=== PATIENT | female | born 1945 | race Caucasian/White ===

== ENCOUNTER 2018-03-05 13:03 | Outpatient (CLI) | payer MEDICARE, OTHER ==
[2018-03-05 13:00] VITALS: BP 118/80
== END 2018-03-05 13:35 | disposition home or self-care (01) ==
LOC: ORTHO 13:03
PROVIDERS: ATTEND Nurse Practitioner Family
DX: M25.531 Pain in right wrist (principal); F41.9 Anxiety disorder, unspecified; Z88.8 Allergy status to other drugs, medicaments and biological substances
CPT/HCPCS: 73110; 99213

== ENCOUNTER 2018-04-02 13:01 | Outpatient (CLI) | payer MEDICARE, OTHER ==
[2018-04-02 13:05] VITALS: BP 125/79
== END 2018-04-02 13:36 | disposition home or self-care (01) ==
LOC: ORTHO 13:01
PROVIDERS: ATTEND Nurse Practitioner Family
DX: S52.501G Unspecified fracture of the lower end of right radius, subsequent encounter for closed fracture with delayed healing (principal); G20 Parkinson's disease; F41.9 Anxiety disorder, unspecified; X58.XXXD Exposure to other specified factors, subsequent encounter
CPT/HCPCS: 73110; 99213

== ENCOUNTER 2018-04-23 12:47 | Outpatient (CLI) | payer MEDICARE, OTHER ==
[2018-04-23 12:52] VITALS: BP 129/79
== END 2018-04-23 13:40 | disposition home or self-care (01) ==
LOC: ORTHO 12:47
PROVIDERS: ATTEND Nurse Practitioner Family
DX: S52.501D Unspecified fracture of the lower end of right radius, subsequent encounter for closed fracture with routine healing (principal); G20 Parkinson's disease; F41.9 Anxiety disorder, unspecified; Z88.1 Allergy status to other antibiotic agents; Z88.8 Allergy status to other drugs, medicaments and biological substances; W01.0XXD Fall on same level from slipping, tripping and stumbling without subsequent striking against object, subsequent encounter
CPT/HCPCS: 73110; 99213

== ENCOUNTER 2018-06-24 09:23 | Outpatient (CLI) | payer MEDICARE, OTHER ==
[2018-06-24 09:21] VITALS: BP 114/77
== END 2018-06-24 09:47 | disposition home or self-care (01) ==
LOC: ORTHO 09:23
PROVIDERS: ATTEND Nurse Practitioner Family
DX: S52.501D Unspecified fracture of the lower end of right radius, subsequent encounter for closed fracture with routine healing (principal); G20 Parkinson's disease; F41.9 Anxiety disorder, unspecified; Z88.1 Allergy status to other antibiotic agents; Z88.8 Allergy status to other drugs, medicaments and biological substances; W01.0XXD Fall on same level from slipping, tripping and stumbling without subsequent striking against object, subsequent encounter
CPT/HCPCS: 73110; 99213

== ENCOUNTER 2018-09-20 06:41 | Inpatient (IN) | payer MEDICARE, OTHER | END 2018-09-23 15:05 | LOC: ER 06:41 → ED HOLD 15:44 → ORTHO 4S 16:50 | PROC: 0PSH04Z Reposition Right Radius with Internal Fixation Device, Open Approach (ICD-10-PCS; principal; 2018-09-22 13:12) | PROC: 2W3FX1Z Immobilization of Left Hand using Splint (ICD-10-PCS; 2018-09-22 13:12) | DX: S52.531A Colles' fracture of right radius, initial encounter for closed fracture (principal); S62.337A Displaced fracture of neck of fifth metacarpal bone, left hand, initial encounter for closed fracture; G20 Parkinson's disease ==

== ENCOUNTER 2022-06-03 02:42 | Emergency (ER) | payer MEDICARE, OTHER ==
[~2022-06-03] VITALS: Ht 162.6 cm; Wt 68.2 kg
[~2022-06-03 02:42] MED LIST: BUPR150T8 PO; CARB-313 PO; NO HOME MEDS
[2022-06-03 02:58] VITALS: BP 124/68
== END 2022-06-03 05:46 | disposition left against medical advice (07) ==
LOC: ER 02:42
DX: R25.1 Tremor, unspecified (principal); Z53.21 Procedure and treatment not carried out due to patient leaving prior to being seen by health care provider

== ENCOUNTER 2023-11-14 21:52 | Emergency (ER) | payer MEDICARE, OTHER ==
[~2023-11-14] VITALS: Ht 162.6 cm; Wt 65.0 kg
[2023-11-15 00:42] VITALS: BP 124/66; PULSE 84; RESP 16; TEMP 98.1; O2SAT 99
== END 2023-11-15 00:43 | disposition home or self-care (01) ==
LOC: ER 21:53
DX: F41.9 Anxiety disorder, unspecified (principal); Z88.1 Allergy status to other antibiotic agents; Z88.8 Allergy status to other drugs, medicaments and biological substances; Z79.899 Other long term (current) drug therapy
CPT/HCPCS: 93005; 99283

== ENCOUNTER 2024-03-31 07:44 | Emergency (ER) | payer MEDICARE, OTHER ==
[~2024-03-31] VITALS: Ht 162.6 cm; Wt 75.0 kg
[2024-03-31 08:28] LABS: BASOPHILS % (AUTO) 0.6 % (0-1); EOSINOPHILS # (AUTO) 0.1 X10'3 (0-0.9); EOSINOPHILS % (AUTO) 1.8 % (0-6); HEMATOCRIT 35.9 % (35.0-45.0); HEMOGLOBIN 11.9 g/dl (12.0-16.0); LYMPHOCYTES # (AUTO) 0.9 X10'3 (1.1-4.8); LYMPHOCYTES % (AUTO) 13.7 % (21-51); MEAN CORPUSCULAR HEMOGLOBIN 32.5 PG (27.0-31.0); MEAN CORPUSCULAR HGB CONC 33.3 g/dL (33.0-36.5); MEAN CORPUSCULAR VOLUME 97.9 FL (78-98); MEAN PLATELET VOLUME 7.5 FL (7.4-10.4); MONOCYTES # (AUTO) 0.5 X10'3 (0-0.9); MONOCYTES % (AUTO) 7.9 % (2-12); PLATELET COUNT 303 X10'3 (140-440); RED BLOOD COUNT 3.67 X10'6 (4.20-5.60); RED CELL DISTRIBUTION WIDTH 14.4 % (11.5-14.5); WHITE BLOOD COUNT 6.6 X10'3 (4.5-11.0)
[2024-03-31 08:46] LABS: ALANINE AMINOTRANSFERASE 12 U/L (12-78); ALBUMIN 3.3 G/DL (3.4-5.0); ALBUMIN/GLOBULIN RATIO 1.2 (1.1-1.5); ALKALINE PHOSPHATASE 95 IU/L (46-116); ANION GAP 4 (8-16); ASPARTATE AMINO TRANSFERASE 12 U/L (10-37); BILIRUBIN,TOTAL 0.5 MG/DL (0.1-1.0); BLOOD UREA NITROGEN 21 MG/DL (7-18); CALCIUM 9.1 MG/DL (8.5-10.1); CHLORIDE 104 MMOL/L (99-107); CREATININE 0.75 MG/DL (0.40-0.90); GLUCOSE 105 MG/DL (70-104); POTASSIUM 4.1 MMOL/L (3.5-5.1); SODIUM 138 MMOL/L (135-145); TOTAL CARBON DIOXIDE 30.5 MMOL/L (24-32); TOTAL PROTEIN 6.1 G/DL (6.4-8.2); eCRCL 54 ML/MIN; eGFR 75 ML/MIN
[2024-03-31] MEDS: normal saline 1000ML IV soln IVB ONE (10:17)
[2024-03-31 11:52] VITALS: BP 138/85; PULSE 71; RESP 16; TEMP 98.2; O2SAT 98
== END 2024-03-31 11:55 | disposition home or self-care (01) ==
LOC: ER 07:45
DX: R42 Dizziness and giddiness (principal); F41.9 Anxiety disorder, unspecified; Z88.1 Allergy status to other antibiotic agents; Z79.899 Other long term (current) drug therapy; Z98.890 Other specified postprocedural states
CPT/HCPCS: 36415; 71045; 80053; 83605; 84484; 85025; 93005; 93971; 96360; 99285; J7030

== ENCOUNTER 2024-04-11 11:31 | Emergency (ER) | payer MEDICARE, OTHER ==
[~2024-04-11] VITALS: Ht 162.6 cm; Wt 63.2 kg
[2024-04-11 12:59] VITALS: BP 118/65; PULSE 73; RESP 16; TEMP 97.8; O2SAT 95
== END 2024-04-11 13:01 | disposition home or self-care (01) ==
LOC: ER 11:32
DX: S70.12XA Contusion of left thigh, initial encounter (principal); M25.462 Effusion, left knee; G20.A1 Parkinson's disease without dyskinesia, without mention of fluctuations; F41.9 Anxiety disorder, unspecified; Z88.1 Allergy status to other antibiotic agents; Z79.899 Other long term (current) drug therapy; Z98.890 Other specified postprocedural states; X58.XXXA Exposure to other specified factors, initial encounter; Y93.89 Activity, other specified; Y92.89 Other specified places as the place of occurrence of the external cause; Y99.8 Other external cause status
CPT/HCPCS: 73560; 99284

== ENCOUNTER 2025-06-05 12:46 | Emergency (ER) | payer MEDICARE, OTHER ==
[~2025-06-05] VITALS: Ht 162.6 cm; Wt 63.1 kg
[~2025-06-05 12:46] MED LIST changes: +ACET-890 PO; +AMA100C PO; -BUPR150T8 PO; -CARB-313 PO; +CARB1CAP5 PO; +CARB1TAB41 PO; +DICL100G59 TOP; +FLUV25TA9 PO; +HYDR-3717 PO; +LORA-269 PO; +MIDO2.5T PO; +MIRT-142 PO; +MULT-18 PO; -NO HOME MEDS; +PRAZ1CAP5 PO
[2025-06-05 12:52] VITALS: TEMP 97
[2025-06-05 14:37] LABS: MEAN PLATELET VOLUME 7.7 FL (7.4-10.4); RED CELL DISTRIBUTION WIDTH 13.8 % (11.5-14.5)
[2025-06-05 14:44] LABS: CREATININE 0.83 MG/DL (0.40-0.90); TOTAL CARBON DIOXIDE 27.6 MMOL/L (24-32); eCRCL 47 ML/MIN; eGFR 66 ML/MIN
--- NOTE | 2025-06-05 14:55 | Physician Documentation ---
History of Present Illness General Chief Complaint: Weakness Stated Complaint: WEAKNESS Time Seen by MD: 14:55 Primary Medical Doctor: DR. VARGAS History of Present Illness Initial Comments 80-year-old female with a history of parkinsonism who was recently admitted to the hospital for weakness presents for shakiness that she had this afternoon. Patient was discharged yesterday. The patient states she felt shaky and was concerned that her blood pressure might be low. She states she did not have a blood pressure for blood pressure machine at home and came in to get checked out. The patient states that the shakiness has improved. The patient denies any fevers chills nausea vomiting or diarrhea. The patient denies any chest pain or shortness of breath. Medication Reconciliation Allergies: Coded Allergies: amoxicillin (Unverified Adverse Reaction, Unknown, 06/05/25) clavulanic acid (Unverified Adverse Reaction, Unknown, 06/05/25) nitrofurantoin (Unverified Adverse Reaction, Unknown, 06/05/25) Scheduled Amantadine Hcl* (Symmetrel*), 1 TAB PO DAILY, (Reported) Carbidopa/Levodopa (Rytary ER 48.75 mg-195 mg Cap), 2 CAP PO Q5H, (Reported) Carbidopa/Levodopa (Rytary ER 48.75 mg-195 mg Cap), 2 CAP PO Q4H, (Reported) Carbidopa/Levodopa (Carbidopa-Levo ER 25-100 Tab), 1 TAB PO TID, (Reported) Diclofenac Sodium (Diclofenac Sodium), 1 APPLIC TOP Q6H, (Reported) Fluvoxamine Maleate (Fluvoxamine Maleate), 1 TAB PO DAILY, (Reported) Hydroxyzine Hcl* (Atarax*), 1 TAB PO Q12H, (Reported) Midodrine Hcl* (Proamatine*), 2 TAB PO BID, (Reported) Mirtazapine (Remeron), 1 TAB PO HS, (Reported) Multivitamin with Folic Acid (Tab-A-Hedy Tablet), 1 TAB PO DAILY, (Reported) Prazosin Hcl (Prazosin Hcl), 1 CAP PO HS, (Reported) Scheduled PRN Acetaminophen (Tylenol), 1-2 TAB PO QID PRN PRN for pain or fever, (Reported) Lorazepam (Ativan), 1 TAB PO DAILY PRN for anxiety, (Reported) Discontinued Medications Carbidopa/Levodopa (Carbidopa-Levo 25-100 Mg Odt), 1 TAB PO TID, (Reported) Discontinued Reason: patient no longer taking Past Medical History Past Medical History: Parkinson's Disease, Anxiety Past Surgical History: orthopedic surgeries Smoking: Non-Smoker Alcohol Use: None Drug Use: none Lives with: Alone Lives In: Home Occupation: employed Review of Systems All Other Systems at this time: Reviewed and Negative Physical Exam Physical Exam Vital Signs: Temperature: 97.0, Source: Temporal, Heart Rate: 90, Respiratory Rate: 18, BP: 122/68, Pulse Oximetry: 95, Weight: 63.100 Oxygen Flow Rate: 0 Physical Exam VITALS: Reviewed and as above. GENERAL: Alert, no apparent distress. HEENT: Normocephalic, atraumatic, PERRL, EOMI, dry mucosa, no erythema RESPIRATORY: Lungs clear, normal breath sounds, no respiratory distress. CHEST: No accessory muscle use, no retractions CV: Regular rate, rhythm, no edema, no murmur, No: JVD GI: Soft, non-tender, bowels sounds present, no rebound, guarding, or rigidity BACK: No CVA tenderness, or swelling MUSCULOSKELETAL: No deformities, no edema SKIN: Warm and dry, no rash NEURO: Oriented x4, No motor or sensory deficit PSYCH: Normal mood and affect, no agitation Progress Results/Orders Results/Orders Vital Signs 06/05/25 06/05/25 06/05/25 12:52 16:04 16:06 Temp 97.0 Pulse 90 71 Resp 18 16 B/P (MAP) 122/68 169/87 Pulse Ox 95 96 O2 Flow Rate 0 Laboratory Tests Test 06/05/25 14:23 White Blood Count 7.4 Red Blood Count 4.42 Hemoglobin 14.0 Hematocrit 41.0 Mean Corpuscular Volume 92.8 Mean Corpuscular Hemoglobin 31.6 H Mean Corpuscular Hemoglobin Concent 34.0 Red Cell Distribution Width 13.8 Platelet Count 278 Mean Platelet Volume 7.7 Neutrophils (%) (Auto) 69.4 Lymphocytes (%) (Auto) 18.1 L Monocytes (%) (Auto) 8.2 Eosinophils (%) (Auto) 3.5 Basophils (%) (Auto) 0.8 Neutrophils # (Auto) 5.1 Lymphocytes # (Auto) 1.3 Monocytes # (Auto) 0.6 Eosinophils # (Auto) 0.3 Basophils # (Auto) 0.1 CBC Comment Sodium Level 140 Potassium Level 4.5 Chloride Level 106 Carbon Dioxide Level 27.6 Anion Gap 6 L Blood Urea Nitrogen 22 H Creatinine 0.83 Estimated GFR/1.73 m2 66 BUN/Creatinine Ratio 26.5 H Glucose Level 91 Calcium Level 9.1 Albumin 3.6 Chemistry Comments Medical Decision Making Findings The patient was recently discharged she became shaky this morning she does have a history of parkinsonism and she felt that her blood pressure might be low. The patient did not have a blood pressure cuff and came to the emergency room for evaluation. The patient is feeling better. Clinically she is well- appearing in no distress her blood pressure is fine. Her prior hospitalizations has been reviewed. Her symptoms have improved. The patient's pulse oximetry was interpreted as normal and adequate the patient will be discharged. Departure Time of Disposition: 15:18 Disposition: 01 HOME / SELF CARE / HOMELESS Impression: Primary Impression: Weakness Discharge Instructions: Weakness, [id number] Additional Instructions: Follow up with your healthcare provider as soon as possible. Return for any worsening of your symptoms. Referrals: NO PRIMARY CARE PROVIDER (PCP) Signature Scribe Signature: no scribe Attestation: The note accurately reflects work and decisions made by me.Carlos Cherry MD 06/08/25 09:34 CARLOS CHERRY MD Jun 05, 2025 14:55
[2025-06-05 16:06] VITALS: BP 169/87; PULSE 71; RESP 16; O2SAT 96
== END 2025-06-05 16:07 | disposition home or self-care (01) ==
LOC: ER 12:46
DX: R53.1 Weakness (principal); F41.9 Anxiety disorder, unspecified; Z88.1 Allergy status to other antibiotic agents; Z88.8 Allergy status to other drugs, medicaments and biological substances; Z79.899 Other long term (current) drug therapy; Z98.890 Other specified postprocedural states; Z60.2 Problems related to living alone
CPT/HCPCS: 36415; 80048; 85025; 99284